=== PATIENT | male | born 1965 | race Caucasian/White ===

== ENCOUNTER 2019-10-12 06:16 | Emergency (ER) | payer BC ==
[2019-10-12 06:26] VITALS: BP 151/81; PULSE 65; TEMP 97.5
[2019-10-12] MEDS ORDERED: ORPHENADRINE 30 MG/ML 2 ML VIAL IM STA (06:42)
[2019-10-12] MEDS ORDERED: KETOROLAC 60 MG/2 ML VIAL IM STA (06:42)
--- NOTE | 2019-10-12 06:47 | ED ---
Back Pain HPI - General Chief Complaint: Back Pain/Injury Stated Complaint: shoulder pain Time Seen by Provider: 10/12/19 06:29 Source: patient, RN notes reviewed, old records reviewed - History of Present Illness Initial Comments: This Patient is a pleasant 54-year-old male, he presents emergency Department today with right shoulder pain. Pain is worse with range of motion. Patient reports that over the past weekend he was doing a lot heavy lifting. He reports that he woke up on Tuesday with pain in the right shoulder. He saw his primary care doctor and was placed on steroids for concern for pulmonary muscle. No x- rays were completed at that time. Patient states that he was having some improvement of his shoulder pain up until today when he started to make coffee. Patient reports that doing a simple range of motion is morning, severe pain and spasming in his right shoulder. He does have a history of carpal tunnel. He reports he has had a history of cardiac right rotator cuff repair by Dr. Garcia a few years ago. Patient states that he is right-handed. Patient denies any recent fever, chills, shortness of breath, chest pain, back pain, abdominal pain, nausea vomiting, numbness or tingling, dysuria or hematuria, constipation or diarrhea, headaches or visual changes, or any other current symptoms - Related Data Home Medications Medication Instructions Recorded Confirmed Mesalamine [Lialda] 3.6 gm PO DAILY 08/26/16 08/31/16 Previous Rx's Medication Instructions Recorded Cephalexin [Keflex] 500 mg PO Q8HR #15 cap 08/31/16 HYDROcodone/APAP 5-325MG [[place] 5] 1 - 2 each PO Q4-6H PRN #60 tab 08/31/16 Sennosides-Docusate Sodium 2 tab PO DAILY #30 tablet 08/31/16 [Senokot-S] Cyclobenzaprine [Flexeril] 10 mg PO TID #12 tab 10/12/19 Ibuprofen [Motrin] 600 mg PO Q6HR PRN #12 tab 10/12/19 Allergies Allergy/AdvReac Type Severity Reaction Status Date / Time No Known Allergies Allergy Verified 10/12/19 06:26 Review of Systems ROS Statement: Those systems with pertinent positive or pertinent negative responses have been documented in the HPI. ROS Other: All systems not noted in ROS Statement are negative. Past Medical History Past Medical History: Diabetes Mellitus, Hypertension Additional Past Medical History / Comment(s): ULCERATIVE COLITIS History of Any Multi-Drug Resistant Organisms: None Reported Past Surgical History: Orthopedic Surgery Additional Past Surgical History / Comment(s): 08/31/16 Acromioplasty excision distal clavicle right rotator cuff repair. Past Anesthesia/Blood Transfusion Reactions: No Reported Reaction Past Psychological History: No Psychological Hx Reported Smoking Status: Current every day smoker Past Alcohol Use History: Rare Past Drug Use History: None Reported - Past Family History Father Family Medical History: Diabetes Mellitus, Myocardial Infarction ([place]), Vascular Disorder Mother Family Medical History: Cancer Additional Family Medical History / Comment(s): melanoma General Exam - General Exam Comments Initial Comments: 54-year-old male. Patient is alert and oriented 3. No distress. General appearance: alert, in no apparent distress Head exam: Present: atraumatic, normocephalic, normal inspection Eye exam: Present: normal appearance, PERRL, EOMI. Absent: scleral icterus, conjunctival injection, periorbital swelling ENT exam: Present: normal exam, mucous membranes moist Neck exam: Present: normal inspection. Absent: tenderness, meningismus, lymphadenopathy Respiratory exam: Present: normal lung sounds bilaterally. Absent: respiratory distress, wheezes, rales, rhonchi, stridor Cardiovascular Exam: Present: regular rate, normal rhythm, normal heart sounds. Absent: systolic murmur, diastolic murmur, rubs, gallop, clicks GI/Abdominal exam: Present: soft, normal bowel sounds. Absent: distended, tenderness, guarding, rebound, rigid Extremities exam: Present: normal inspection, full ROM, normal capillary refill. Absent: tenderness, pedal edema, joint swelling, calf tenderness Right Shoulder Exam: Present: tenderness, swelling, other (Evidence of scar from previous R rotator cuff repair). Absent: normal inspection, full ROM ( is only able to abduct armed to 45 without severe pain. Tenderness over the trapezius muscle.), abrasion, laceration Upper Arm exam: Present: normal inspection, full ROM Elbow exam: Present: normal inspection, full ROM Forearm Wrist exam: Present: normal inspection, full ROM Hand Wrist exam: Present: normal inspection, full ROM Neuro motor exam: Present: wrist extension intact, thumb opposition intact, thumb IP flexion intact, thumb adduction intact, fingers 2-5 abduction intact Vascular: Present: normal capillary refill Back exam: Present: normal inspection Neurological exam: Present: alert, oriented X3, CN II-XII intact Psychiatric exam: Present: normal affect, normal mood Skin exam: Present: warm, dry, intact, normal color. Absent: rash Course Vital Signs 10/12/19 06:20 Temperature 97.5 F L Pulse Rate 65 Respiratory 19 Rate Blood Pressure 151/81 O2 Sat by Pulse 97 Oximetry Medical Decision Making - Medical Decision Making Patient's 54-year-old male, history of right rotator cuff injury and repair a few years ago by Dr. Garcia. He presents after doing heavy lifting at home this past weekend complaining of worsening pain. Saw his PCP and was placed on steroids. Today he reports that he had worsening pain after lifting diffuse items up to make coffee. Patient has limited range of motion of the right shoulder, concerned for re-rotator cuff injury. She only able to abduct to 45, and positive Apley scratch test. He is neurovascularly intact distally. X-ray of the shoulder revealed evidence of a loose body over the greater trochanter. Discussed this concern for rotator cuff tear. I did discuss the Patient could be predisposed to developing frozen shoulder syndrome. I discussed that he needs to practice some range of motion of his shoulder and had prompt follow-up with orthopedic. I discussed the Patient can be given a shoulder sling with the instructions to take his shoulder out frequently and do purposeful range of motion. Patient will be discharged at this time with a short course of pain medication and muscle relaxers and anti-inflammatory medicine. - Radiology Data Radiology results: report reviewed No acute fracture dislocation evident on the right shoulder. Mild to moderate narrowing of the glenohumeral joint. All defined widening at the acromial clavicular joint bruising prior to prior surgery with partial bony resection. 8 mm ossific fragment near the greater tuberosity suspicious for intra-articular loose body. The visualized ribs are intact and unremarkable. Disposition Clinical Impression: Rotator cuff dysfunction Disposition: ADMITTED IP TO THIS HOSP Condition: Stable Instructions (If sedation given, give patient instructions): Rotator Cuff Injury (ED) Additional Instructions: Patient advised to do purposeful range of motion of her shoulder even though being placed in a shoulder sling. He should do range of motion every 1-2 hours. Take anti-inflammatory medicine as prescribed. Muscle relaxers as prescribed. Return to the emergency department if any alarming signs or symptoms occur. Prescriptions: Cyclobenzaprine [Flexeril] 10 mg PO TID #12 tab Ibuprofen [Motrin] 600 mg PO Q6HR PRN #12 tab PRN Reason: Pain Is patient prescribed a controlled substance at d/c from ED?: No Referrals: Ajay Hope DO [Primary Care Provider] - 1-2 days Abram Allan MD [STAFF PHYSICIAN] - 1-2 days Time of Disposition: 07:13
--- NOTE | 2019-10-12 06:54 | XR ---
EXAMINATION TYPE: XR shoulder complete RT DATE OF EXAM: 10/12/2019 CLINICAL HISTORY: History of rotator cuff injury with pain. TECHNIQUE: Three views of the right shoulder are obtained. COMPARISON: None. FINDINGS: There is no acute fracture/dislocation evident in the right shoulder. [id number] delma rowing at the glenohumeral joint. Well-defined widening at acromioclavicular joint presumed product o f prior surgery or partial bony resection. 8 mm ossific fragment near greater tuberosity suspicious f or intra-articular loose body. The visualized ribs are intact and unremarkable. IMPRESSION: As above.
[2019-10-12] MEDS ORDERED: ACET/COD 300 MG/30 MG STARTER PACK 6 TAB BTL PO STA (07:13)
[2019-10-12 07:31] VITALS: RESP 20
== END 2019-10-12 07:31 | disposition other institution (70) ==
LOC: EC 06:16
DX: M62.89 Other specified disorders of muscle (principal); K51.90 Ulcerative colitis, unspecified, without complications; F17.200 Nicotine dependence, unspecified, uncomplicated; Z79.899 Other long term (current) drug therapy; Z87.828 Personal history of other (healed) physical injury and trauma; Z98.890 Other specified postprocedural states; X50.0XXA Overexertion from strenuous movement or load, initial encounter
CPT/HCPCS: 73030; 99285; 96372 ×2; J2360; J1885

== ENCOUNTER → 2021-06-05 | Outpatient (CLI) | payer BC ==
--- NOTE | 2021-06-06 04:41 | MR ---
EXAMINATION TYPE: MR brain wo con DATE OF EXAM: 06/05/2021 COMPARISON: None HISTORY: Headache for now 7 weeks, history of left and right side numbness. Multiplanar multiecho imaging of the brain without contrast. Ventricles have fairly normal size. There is no mass effect nor midline shift. There is no sign of in tracranial hemorrhage. Diffusion images show no evidence of an acute infarct. Corpus callosum appears normal. Sella turcica appears normal. There is no evidence of orbital mass. T here are a few small foci of increased signal in the white matter right parietal lobe measuring up to 5 mm. Total number is approximately 5. Brainstem appears intact. Cerebellum is intact. There is mucosal thickening in the maxillary and ethmoid sinuses. IMPRESSION: There are a few white matter high signal foci in the right parietal lobe of uncertain significance. O therwise negative MR scan of the brain. No evidence of cortical infarct. I do not suspect demyelinati ng disease. Sinusitis.
== END | disposition home or self-care (01) ==
LOC: RADMRIMAIN 18:15
PROVIDERS: ATTEND Physician Assistant
DX: R93.0 Abnormal findings on diagnostic imaging of skull and head, not elsewhere classified (principal)
CPT/HCPCS: 70551

== ENCOUNTER → 2021-07-13 | Outpatient (CLI) | payer BC ==
--- NOTE | 2021-07-13 13:04 | US ---
EXAMINATION TYPE: US scrotum with doppler. Grayscale and color Doppler Duplex imaging performed of kika duval scrotum. DATE OF EXAM: 07/13/2021 COMPARISON: NONE CLINICAL HISTORY: R testicular pain. EXAM MEASUREMENTS: TESTICLES: Right Testicle: 4.7 x 2.2 x 3.4 cm Left Testicle: 5.5 x 2.2 x 3.1 cm EPIDIDYMIS HEAD: Right Epididymis: 1.3 x 0.8 cm Left Epididymis: 1.1 x 0.7 cm Doppler performed to assess for testicular vascularity; good bilateral color flow and waveforms are s een. There is no evidence of testicular torsion. Presence of hydroceles: small amount of fluid around right testicle. Presence of varicoceles: noticed bilaterally, increased flow with valsalva. IMPRESSION: 1. Bilateral varicoceles. 2. Small amount of right-sided hydrocele.
--- NOTE | 2021-07-13 13:05 | US ---
EXAMINATION TYPE: US pelvic limited DATE OF EXAM: 07/13/2021 COMPARISON: NONE CLINICAL HISTORY: RLQ pain. RLQ pain in groin down to testicle. The right groin was scanned over patient's area of pain. There is a 1.4 x 0.9 cm lymph node noted. Va lsalva was utilized, no obvious hernia noted. IMPRESSION: No hernia visualized at this time.
== END | disposition home or self-care (01) ==
LOC: RADUSWWP 12:08
PROVIDERS: ATTEND Family Medicine
DX: N43.3 Hydrocele, unspecified (principal); I86.1 Scrotal varices
CPT/HCPCS: 76857; 76870; 93975

== ENCOUNTER → 2021-09-30 | Outpatient (CLI) | payer BC ==
[2021-09-30 15:45] LABS: African American GFR (CKD) >90 (>60 ml/min/1.73 sqM); Blood Urea Nitrogen 20 mg/dL (9-20); Non-African American GFR(CKD) 84 (>60 ml/min/1.73 sqM)
--- NOTE | 2021-10-01 10:00 | CT ---
EXAMINATION TYPE: CT abdomen pelvis w con DATE OF EXAM: 09/30/2021 COMPARISON: Ultrasound 07/13/2021 HISTORY: LLQ pain, hernia CT DLP: 1537.7 mGycm Automated exposure control for dose reduction was used. CONTRAST: CT scan of the abdomen pelvis is performed with IV Contrast, patient injected with 100 mL of Isovue 3 00. FINDINGS- LUNG BASES- No significant abnormality is appreciated. LIVER/GB- No gross abnormality is appreciated. PANCREAS- No gross abnormality is seen. SPLEEN- No gross abnormality is seen. ADRENALS- No gross abnormality is seen. KIDNEYS/BLADDER- no hydronephrosis or nephrolithiasis. Simple 4.3 cm left renal cyst. Additional tiny hypodensity measuring less than 5 mm right kidney too small to characterize. BOWEL- no bowel dilatation. Normal appendix. LYMPH NODES- No greater than 1cm abdominal or pelvic lymph nodes areappreciated. OSSEOUS STRUCTURES-hypertrophic changes spine. Suspect a spondylolysis of L5. Minimal anterolisthesis . OTHER- bilateral fat-containing inguinal hernias. IMPRESSION- 1. Bilateral fat-containing inguinal hernias. 2. Bilateral spondylolysis L5 with grade 1 anterolisthesis. 3. Simple appearing right renal cyst
== END | disposition home or self-care (01) ==
LOC: RADCTMAIN 14:12
PROVIDERS: ATTEND Family Medicine
DX: K40.90 Unilateral inguinal hernia, without obstruction or gangrene, not specified as recurrent (principal); N28.1 Cyst of kidney, acquired; M43.06 Spondylolysis, lumbar region
CPT/HCPCS: 82565; 84520; 74177; 36415; Q9967

== ENCOUNTER 2021-10-09 06:29 | Day surgery (SDC) | payer BC ==
[2021-10-06 10:55] VITALS: BMI 30.1
[~2021-10-09 06:29] MED LIST: LACTATED RINGERS 1,000 ML IV SCH
[2021-10-09 07:03] VITALS: TEMP 97.5
[2021-10-09 07:11] LABS: Glucose,Whole Blood 296 mg/dL (75-99)
[2021-10-09] MEDS ORDERED: INSULIN ASPART (NovoLOG) 100 UNIT/ML VIAL SQ ONE (07:14)
[2021-10-09] MEDS ORDERED: LIDOCAINE 1% INJ 10MG/ML (20 ML MDV) ONE (07:29)
[2021-10-09] MEDS ORDERED: PROPOFOL 10 MG/ML 20 ML VIAL IV ONE (07:29)
--- NOTE | 2021-10-09 07:50 | P.PCN ---
Date of Procedure: 10/09/21 Procedure(s) Performed: BRIEF HISTORY: Patient is a 56-year-old pleasant white male scheduled for an elective colonoscopy as a part of surveillance of long-standing history of ulcerative colitis diagnosed in 2013. He is in clinical remission. He is maintained on mesalamine 4.8 g daily. PROCEDURE PERFORMED: Colonoscopy with biopsy. PREOPERATIVE DIAGNOSIS: Long-standing history of ulcerative colitis. IV sedation per Anesthesia. PROCEDURE: After informed consent was obtained, the patient, was brought into the endoscopy unit. IV sedation was administered by Anesthesia under continuous monitoring. Digital rectal examination was normal. Initially the Olympus CF-160 flexible video colonoscope was then inserted in the rectum, gradually advanced into the cecum without any difficulty. Careful examination was performed as the scope was gradually being withdrawn. Ileocecal valve and the appendiceal orifice were visualized and appeared normal. Prep was excellent. Mucosa of the cecum, ascending colon, transverse colon, descending colon, sigmoid colon, and rectum appeared normal. Random biopsies were done at every 10 cm intervals from rectum to cecum to rule out dysplasia Retroflexion was performed in the rectum and no lesions were seen. The patient tolerated the procedure well. IMPRESSION: Normal-appearing colon from rectum to cecum with no evidence of colitis or colorectal neoplasia . RECOMMENDATIONS: Findings of this examination were discussed with the patient s his family. He was advised to follow with the biopsy results. If the biopsy reveals no evidence of dysplasia, he can have a repeat colonoscopy in 2 years.
[2021-10-09 07:53] VITALS: RESP 18
[2021-10-09 08:14] VITALS: BP 105/67; PULSE 59
== END 2021-10-09 08:33 | disposition home or self-care (01) ==
LOC: ORWHC2ENDO 06:29
PROVIDERS: ATTEND Internal Medicine Gastroenterology
DX: K51.90 Ulcerative colitis, unspecified, without complications (principal); I10 Essential (primary) hypertension; F17.200 Nicotine dependence, unspecified, uncomplicated; Z98.890 Other specified postprocedural states; Z79.82 Long term (current) use of aspirin; Z79.899 Other long term (current) drug therapy
CPT/HCPCS: 88305; 45380; J2001; J2704

== ENCOUNTER → 2021-10-16 | Outpatient (CLI) | payer BC ==
[2021-10-16 16:18] LABS: Basophils # (A) 0.04 X 10*3/uL (0.00-0.10); Basophils % (A) 0.8 %; Eosinophils % (A) 5.9 %; Lymphocytes # (A) 1.44 X 10*3/uL (0.90-5.00); Lymphocytes % (A) 28.2 %; MCH 29.4 pg (27.0-32.0); MCHC 33.3 g/dL (32.0-37.0); MCV 88.2 fL (80.0-97.0); Monocytes # (A) 0.34 X 10*3/uL (0.20-1.00); Monocytes % (A) 6.7 %; Neutrophils # (A) 2.95 X 10*3/uL (1.80-7.70); Neutrophils % (A) 57.6 %; Platelet Count 175 X 10*3/uL (140-440); RDW 12.6 % (11.5-14.5); WBC 5.11 X 10*3/uL (4.50-10.00)
== END | disposition home or self-care (01) ==
LOC: LABPAT 09:11
PROVIDERS: ATTEND Surgery
DX: Z01.812 Encounter for preprocedural laboratory examination (principal); K40.20 Bilateral inguinal hernia, without obstruction or gangrene, not specified as recurrent
CPT/HCPCS: 36415; 85025

== ENCOUNTER 2021-10-20 05:48 | Day surgery (SDC) | payer BC ==
[2021-10-15 13:34] VITALS: BMI 30.1
[~2021-10-20 05:48] MED LIST changes: +ACETAMINOPHEN TAB 500 MG TAB PO PRN; +HEPARIN SODIUM,PORCINE/PF 5,000 UNIT/0.5 ML SYRINGE SQ PRN; -LACTATED RINGERS 1,000 ML IV SCH
[2021-10-20] MEDS ORDERED: LACTATED RINGERS 1,000 ML IV SCH (05:50)
[2021-10-20] MEDS ORDERED: DEXAMETHASONE SOD PHOSPHATE 4 MG/ML 1 ML VIAL IV ONE (05:50)
[2021-10-20] MEDS ORDERED: SCOPOLAMINE 1.5MG/72HR PATCH TRANSDERM ONE (05:50)
[2021-10-20] MEDS ORDERED: ONDANSETRON 4 MG/2 ML VIAL IVP ONE (05:50)
[2021-10-20] MEDS ORDERED: LIDOCAINE 1% (10MG/ML) FOR IV START INTRADERMA PRN (05:50)
[2021-10-20 06:35] LABS: Glucose,Whole Blood 147 mg/dL (75-99)
[2021-10-20] MEDS ORDERED: HYDROmorphone 0.5 MG/0.5 ML SYRINGE IVP PRN (07:00)
[2021-10-20] MEDS ORDERED: fentaNYL (PF) 50 MCG/ML 2 ML AMP IVP ONE (07:22)
[2021-10-20] MEDS ORDERED: MIDAZOLAM 2 MG/2 ML VIAL IVP ONE (07:22)
[2021-10-20] MEDS ORDERED: ROPIVACAINE 5 MG/ML 30 ML VIAL ONE (07:52)
[2021-10-20] MEDS ORDERED: SODIUM CHLORIDE 0.9% (PF) 10 ML VIAL ONE (07:52)
[2021-10-20] MEDS ORDERED: ROCURONIUM 10 MG/ML (5 ML VIAL) IV ONE (07:52)
[2021-10-20] MEDS ORDERED: fentaNYL (PF) 50 MCG/ML 2 ML AMP ONE (07:52)
[2021-10-20] MEDS ORDERED: NEOSTIGMINE 1 MG/ML 10 ML VIAL ONE (07:52)
[2021-10-20] MEDS ORDERED: GLYCOPYRROLATE 0.2 MG/ML 2 ML VIAL ONE (07:52)
[2021-10-20] MEDS ORDERED: PROPOFOL 10 MG/ML 20 ML VIAL IV ONE (07:52)
[2021-10-20] MEDS ORDERED: SUCCINYLCHOLINE CHLORIDE 100 MG/5 ML SYR IV ONE (07:52)
[2021-10-20] MEDS ORDERED: MIDAZOLAM 2 MG/2 ML VIAL ONE (07:52)
[2021-10-20] MEDS ORDERED: KETAMINE 10 MG/ML 20 ML VIAL ONE (07:52)
--- NOTE | 2021-10-20 07:52 | P.GSHP ---
History of Present Illness H&P Date: 10/20/21 Chief Complaint: Bilateral inguinal hernia This is a 56-year-old male with complaints of right groin pain. Patient was seen Karly. Bilateral hernias. He presents today for laparoscopic robotic- assisted repair. Past Medical History Past Medical History: Diabetes Mellitus, Hypertension Additional Past Medical History / Comment(s): ULCERATIVE COLITIS, inguinal hernia. History of Any Multi-Drug Resistant Organisms: None Reported Past Surgical History: Orthopedic Surgery Additional Past Surgical History / Comment(s): Acromioplasty excision distal clavicle right rotator cuff repair, colonoscopies, procedure at [facility] for headaches. Past Anesthesia/Blood Transfusion Reactions: No Reported Reaction Past Psychological History: No Psychological Hx Reported Smoking Status: Former smoker Past Alcohol Use History: Rare Additional Past Alcohol Use History / Comment(s): QUIT SMOKING 2011- STILLS CHEWS TOBACCO. Past Drug Use History: None Reported - Past Family History Father Family Medical History: Diabetes Mellitus, Myocardial Infarction ([place]), Vascular Disorder Mother Family Medical History: Cancer Additional Family Medical History / Comment(s): Melanoma. Medications and Allergies Home Medications Medication Instructions Recorded Confirmed Type Mesalamine [Lialda] 3.6 gm PO DAILY 08/26/16 10/20/21 History Aspirin 81 mg PO DAILY 10/06/21 10/20/21 History Atorvastatin [Lipitor] 10 mg PO DAILY 10/06/21 10/20/21 History Cannabidiol (Cbd) [Epidiolex] 1 dose TOPICAL DAILY PRN 10/06/21 10/20/21 History Cholecalciferol [Vitamin D3 (25 25 mcg PO DAILY 10/06/21 10/20/21 History Mcg = 1000 Iu)] Citalopram Hydrobromide [CeleXA] 20 mg PO HS 10/06/21 10/20/21 History Krill/[place]-3/Dha/Epa/Lipids 1 each PO DAILY 10/06/21 10/20/21 History [Krill Oil 350 mg Softgel] Loratadine [Claritin] 10 mg PO DAILY 10/06/21 10/20/21 History Losartan Potassium 100 mg PO QAM 10/06/21 10/20/21 History Topiramate [Topamax] 100 mg PO HS 10/06/21 10/20/21 History Zinc 50 mg PO DAILY 10/06/21 10/20/21 History atenoloL [Tenormin] 25 mg PO QAM 10/06/21 10/20/21 History Insulin Aspart (Niacinamide) 0 units SQ DIRECTED PRN 10/15/21 10/20/21 History [Fiasp 100 Unit/ml Vial] Insulin Degludec [Tresiba] 15 units SQ HS 10/15/21 10/20/21 History Semaglutide [Ozempic] 0.25 mg SQ SEGURA 10/15/21 10/20/21 History metFORMIN HCL [Glucophage] 1,000 mg PO BID 10/15/21 10/20/21 History Allergies Allergy/AdvReac Type Severity Reaction Status Date / Time No Known Allergies Allergy Verified 10/20/21 06:36 Surgical - Exam Vital Signs Temp Pulse Resp BP Pulse Ox 98.0 F 59 L 16 145/84 97 10/20/21 06:19 10/20/21 06:19 10/20/21 06:19 10/20/21 06:19 10/20/21 06:19 - General well developed, well nourished, no distress - Eyes PERRL - ENT normal pinna - Neck no masses - Respiratory normal expansion - Cardiovascular Rhythm: regular - Abdomen Abdomen: soft, non tender Hernia: inguinal (Bilateral inguinal hernia) Results - Labs Abnormal Lab Results - Last 24 Hours (Table) 10/20/21 Range/Units 06:30 POC Glucose (mg/dL) 147 H (75-99) mg/dL Assessment and Plan Assessment: Bilateral inguinal hernia. We'll perform laparoscopic robotic-assisted repair.
[2021-10-20] MEDS ORDERED: BUPIVACAIN-EPI 0.25%-1:200,000 30 ML VIAL SQ ONE ×2 (07:58→08:15)
[2021-10-20] MEDS ORDERED: LACTATED RINGERS 1,000 ML IV ONE ×2 (08:22→10:20)
--- NOTE | 2021-10-20 09:00 | P.OP ---
Date of Procedure: 10/20/21 Preoperative Diagnosis: Bilateral hernia Postoperative Diagnosis: Bilateral inguinal hernia Procedure(s) Performed: Laparoscopic robotic system repair of bilateral inguinal hernia Excision of bilateral cord lipoma Transversus abdominis plane block Anesthesia: ANAND Surgeon: Hayder Reina Estimated Blood Loss (ml): 5 Pathology: other (Bilateral cord lipoma) Condition: stable Disposition: PACU Operative Findings: The patient's placed on the operating table in the supine position. The patient received general anesthesia. The patient's abdomen was prepped and draped in usual sterile fashion. The skin was anesthetized 1% local Xylocaine at the incision sites. Using an 11 blade a skin incision was made at the umbilicus. The fascia was grasped with a Negin and then the peritoneal cavity was entered with the Veress needle. Position of the Veress needle was confirmed with a positive drop test. After adequate insufflation a 5 mm trocar was placed into the peritoneal cavity. The Laparoscope was placed the peritoneal cavity. And a robotic 8 mm trocar was placed in the right lateral position and then another 8 mm robotic trochars placed in the left lateral position. The original 5 mm trocar was exchanged for a 12 mm trocar. A four-quadrant transversus abdominis plane block was performed using 1% local Xylocaine. The patient was placed in reverse Trendelenburg and then the patient was docked to the robot. Next the peritoneum over top of the right inguinal hernia was incised and then using blunt and sharp dissection and electrocautery the hernia sac was dissected free from the floor of the inguinal canal. The cord lipoma was dissected free sent to pathology The hernia sac was completely reduced into the peritoneal cavity. And then using the [employer] [place] mesh the hernia was repaired. The peritoneum was then sutured with 20V lock suture. Next the peritoneum over top of the left inguinal hernia was incised and then using blunt and sharp dissection and electrocautery the hernia sac was dissected free from the floor of the inguinal canal. The cord lipoma was dissected free sent to pathology. The hernia sac was completely reduced into the peritoneal cavity. And then using the [employer] [place] mesh the hernia was repaired. The peritoneum was then sutured with 20V lock suture. The patient was then undocked the robot. The needle was withdrawn from the peritoneal cavity. The umbilical trocar site was closed with 0 Ethibond suture. The skin was closed interrupted 3-0 Monocryl suture. Dermabond dressing was applied. Patient was sent to recovery in stable condition.
[2021-10-20 09:05] VITALS: TEMP 97.2
[2021-10-20 10:56] LABS: Glucose,Whole Blood 202 mg/dL (75-99)
[2021-10-20 11:32] VITALS: BP 147/81; PULSE 73; RESP 14
--- NOTE | 2021-10-20 13:20 | P.ANPRN ---
Procedure Note - Anesthesia - Nerve Block Performed Bilateral Erector Spinae Time Out Performed: Yes (07:21) Date of Procedure: 10/20/21 Procedure Start Time: Procedure Stop Time: :30 Location of Patient: PreOp Indication: Acute Post-Operative Pain, Requested by Surgeon (DR Reina) Sedation Type: Sedate with meaningful contact maintained Preparation: Sterile Prep Position: Prone Catheter: None Needle Types: Pajunk Needle Gauge: 21 Ultrasound used to visualize needle placement: Yes Ultrasound used to observe medication spread: Yes Injectate: 0.5% Ropivacaine (see comment for volume) (15cc + 10 cc PF Normal saline each side) Blood Aspirated: No Pain Paresthesia on Injection Noted: No Resistance on Injection: Normal Image Stored and Saved: Yes Events: Uneventful and Well Tolerated
== END 2021-10-20 11:58 | disposition home or self-care (01) ==
LOC: OR 05:48
PROVIDERS: ATTEND Surgery
DX: K40.20 Bilateral inguinal hernia, without obstruction or gangrene, not specified as recurrent (principal)
CPT/HCPCS: 49650; S2900; 64999; 86850; 86900; 86901; 88304

== ENCOUNTER 2021-11-24 13:17 | Emergency (ER) | payer BC ==
[2021-11-24] MEDS ORDERED: SODIUM CHLORIDE 0.9% 500 ML 500 ML IV STA (13:30)
[2021-11-24] MEDS ORDERED: METOCLOPRAMIDE 5 MG/ML 2 ML VIAL IVP STA (13:33)
[2021-11-24] MEDS ORDERED: MECLIZINE 12.5 MG TAB PO STA (13:33)
--- NOTE | 2021-11-24 13:33 | ED ---
General Adult HPI - General Source: patient, RN notes reviewed Limitations: no limitations <Beck Ordoñez - Last Filed: 11/24/21 13:59> <Armen Waggoner - Last Filed: 11/24/21 17:52> - General Stated complaint: syncope Time Seen by Provider: 11/24/21 13:20 - History of Present Illness Initial comments: Patient is a pleasant 56-year-old male presenting to the emergency department following a syncopal episode. Patient was at the doctor's office and had injections in the frontal region secondary to chronic headaches. Patient felt lightheaded following this and almost passed out. Patient went back inside and did have a syncopal episode. Patient was feeling dizzy at the time and spinning. Patient still feels this way. No vomiting. No loss of vision. No c onfusion. No history of similar symptoms previously. (Beck Ordoñez) - Related Data Home Medications Medication Instructions Recorded Confirmed Mesalamine [Lialda] 1.2 gm PO TID 08/26/16 11/24/21 Atorvastatin [Lipitor] 10 mg PO DAILY 10/06/21 11/24/21 Citalopram Hydrobromide [CeleXA] 20 mg PO HS 10/06/21 11/24/21 Losartan Potassium 100 mg PO DAILY 10/06/21 11/24/21 atenoloL [Tenormin] 25 mg PO DAILY 10/06/21 11/24/21 Semaglutide [Ozempic] 0.25 mg SQ SEGURA 10/15/21 11/24/21 SUMAtriptan succinate [Imitrex] 50 mg PO DAILY PRN 11/24/21 11/24/21 Topiramate [Topamax] 50 mg PO BID 11/24/21 11/24/21 metFORMIN HCL 1,000 mg PO DAILY 11/24/21 11/24/21 metFORMIN HCL 500 mg PO HS 11/24/21 11/24/21 Previous Rx's Medication Instructions Recorded Meclizine [Antivert] 25 mg PO TID PRN #15 tab 11/24/21 Allergies Allergy/AdvReac Type Severity Reaction Status Date / Time No Known Allergies Allergy Verified 11/24/21 14:33 Review of Systems ROS Other: All systems not noted in ROS Statement are negative. Constitutional: Denies: fever Eyes: Denies: eye pain ENT: Denies: ear pain Respiratory: Denies: cough Cardiovascular: Denies: chest pain Endocrine: Denies: fatigue Gastrointestinal: Denies: abdominal pain Genitourinary: Denies: dysuria Musculoskeletal: Denies: back pain Skin: Denies: rash Neurological: Reports: as per HPI, vertigo. Denies: headache, weakness <Beck Ordoñez - Last Filed: 11/24/21 13:59> ROS Other: All systems not noted in ROS Statement are negative. <Armen Waggoner - Last Filed: 11/24/21 17:52> ROS Statement: Those systems with pertinent positive or pertinent negative responses have been documented in the HPI. Past Medical History Past Medical History: Diabetes Mellitus, Hypertension Additional Past Medical History / Comment(s): ULCERATIVE COLITIS, inguinal hernia. History of Any Multi-Drug Resistant Organisms: None Reported Past Surgical History: Orthopedic Surgery Additional Past Surgical History / Comment(s): Acromioplasty excision distal clavicle right rotator cuff repair, colonoscopies, procedure at [facility] for headaches. Past Anesthesia/Blood Transfusion Reactions: No Reported Reaction Past Psychological History: No Psychological Hx Reported Smoking Status: Former smoker Past Alcohol Use History: Rare Additional Past Alcohol Use History / Comment(s): QUIT SMOKING 2011- STILLS CHEWS TOBACCO. Past Drug Use History: None Reported - Past Family History Father Family Medical History: Diabetes Mellitus, Myocardial Infarction ([facility]), Vascular Disorder Mother Family Medical History: Cancer Additional Family Medical History / Comment(s): Melanoma. <Beck Ordoñez - Last Filed: 11/24/21 13:59> General Exam Limitations: no limitations General appearance: alert, in no apparent distress Head exam: Present: normocephalic Eye exam: Present: normal appearance, PERRL, EOMI. Absent: nystagmus ENT exam: Present: normal oropharynx Neck exam: Present: normal inspection Respiratory exam: Present: normal lung sounds bilaterally Cardiovascular Exam: Present: regular rate, normal rhythm GI/Abdominal exam: Present: soft. Absent: tenderness Extremities exam: Present: normal inspection Neurological exam: Present: alert, oriented X3, CN II-XII intact. Absent: motor sensory deficit Expanded Neurological exam: Present: protecting the airway Speech: Present: fluid speech Cranial nerves: EOM's Intact: Normal, Facial Sensation: Normal Motor strength exam: RUE: 5, LUE: 5, RLE: 5, LLE: 5 Eye Response: (4) open spontaneously Motor Response: (6) obeys commands Verbal Response: (5) oriented Psychiatric exam: Present: normal affect, normal mood Skin exam: Present: normal color <Beck Ordoñez - Last Filed: 11/24/21 13:59> Course Vital Signs 11/24/21 13:35 Temperature 98 F Pulse Rate 72 Respiratory 18 Rate Blood Pressure 143/81 O2 Sat by Pulse 96 Oximetry EKG Findings - EKG Comments: EKG Findings:: Sinus rhythm with a rate of 66. TN 194. QRS 100. QT 373. QTC 46. Normal axis. Normal QRS. No acute ST change. <Beck Ordoñez - Last Filed: 11/24/21 13:59> Medical Decision Making - Lab Data Result diagrams: 11/24/21 14:55 11/24/21 14:55 <Armen Waggoner - Last Filed: 11/24/21 17:52> - Medical Decision Making Care signed out to me by previous shift physician, Dr. Ordoñez. Briefly, patient is a 56-year-old male presents emergency department for positional vertigo. Patient has history of headache recently underwent frontal injections at [facility]. Patient states his headache symptoms are significantly improved after the injections. Today he awoke with vertiginous symptoms. Seen and evaluated at the bedside at 4:00 PM. States that his symptoms are only noticeable with head movement. States he doesn't have any symptoms at rest. Patient denies any other neurologic deficits. He is well- appearing and physical examination bedside is negative. Dr. Ordoñez had ordered labs and imaging. Plan at sign was a fall with pending labs imaging to determine final disposition. Clinical presentation consistent with benign positional vertigo. Laboratory evaluation is unremarkable. Urinalysis is negative. Patient was ordered for Antivert and Reglan. Computed tomography scan the brain is unremarkable. Chest x-ray is nonacute. Chest x-ray is nonacute. CT angiography of the head and neck shows no significant findings. Patient reevaluated at the bedside at 5:50 PM found to be stable medical condition. States that his symptoms are significantly improved. Patient an Chiara with no complications. His workup is essentially negative and his clinical presentation is consistent with peripheral vertigo. Patient's agreeable discharge is told to follow-up with his neurologist. (Armen Waggoner) - Lab Data Lab Results 11/24/21 11/24/21 11/24/21 Range/Units 14:55 14:55 14:55 WBC 10.1 (3.8-10.6) k/uL RBC 4.95 (4.30-5.90) m/uL Hgb 15.4 (13.0-17.5) gm/dL Hct 45.6 (39.0-53.0) % MCV 92.1 (80.0-100.0) fL MCH 31.1 (25.0-35.0) pg MCHC 33.8 (31.0-37.0) g/dL RDW 12.9 (11.5-15.5) % Plt Count 162 (150-450) k/uL MPV 8.3 Neutrophils % 85 % Lymphocytes % 8 % Monocytes % 5 % Eosinophils % 1 % Basophils % 0 % Neutrophils # 8.6 H (1.3-7.7) k/uL Lymphocytes # 0.8 L (1.0-4.8) k/uL Monocytes # 0.5 (0-1.0) k/uL Eosinophils # 0.1 (0-0.7) k/uL Basophils # 0.0 (0-0.2) k/uL PT 10.9 (9.0-12.0) sec INR 1.0 (<1.2) APTT 20.1 L (22.0-30.0) sec Sodium 138 (137-145) mmol/L Potassium 4.5 (3.5-5.1) mmol/L Chloride 105 (98-107) mmol/L Carbon Dioxide 20 L (22-30) mmol/L Anion Gap 13 mmol/L BUN 20 (9-20) mg/dL Creatinine 0.81 (0.66-1.25) mg/dL Est GFR (CKD-EPI)AfAm >90 (>60 ml/min/1.73 sqM) Est GFR (CKD-EPI)NonAf >90 (>60 ml/min/1.73 sqM) Glucose 126 H (74-99) mg/dL Calcium 9.9 (8.4-10.2) mg/dL Total Bilirubin 0.5 (0.2-1.3) mg/dL AST 24 (17-59) U/L ALT 31 (4-49) U/L Alkaline Phosphatase 48 (38-126) U/L Troponin I (0.000-0.034) ng/mL Total Protein 7.6 (6.3-8.2) g/dL Albumin 4.6 (3.5-5.0) g/dL Urine Color Urine Appearance (Clear) Urine pH (5.0-8.0) Ur Specific [place] (1.001-1.035) Urine Protein (Negative) Urine Glucose (UA) (Negative) Urine Ketones (Negative) Urine Blood (Negative) Urine Nitrite (Negative) Urine Bilirubin (Negative) Urine Urobilinogen (<2.0) mg/dL Ur Leukocyte Esterase (Negative) 11/24/21 11/24/21 Range/Units 14:55 15:05 WBC (3.8-10.6) k/uL RBC (4.30-5.90) m/uL Hgb (13.0-17.5) gm/dL Hct (39.0-53.0) % MCV (80.0-100.0) fL MCH (25.0-35.0) pg MCHC (31.0-37.0) g/dL RDW (11.5-15.5) % Plt Count (150-450) k/uL MPV Neutrophils % % Lymphocytes % % Monocytes % % Eosinophils % % Basophils % % Neutrophils # (1.3-7.7) k/uL Lymphocytes # (1.0-4.8) k/uL Monocytes # (0-1.0) k/uL Eosinophils # (0-0.7) k/uL Basophils # (0-0.2) k/uL PT (9.0-12.0) sec INR (<1.2) APTT (22.0-30.0) sec Sodium (137-145) mmol/L Potassium (3.5-5.1) mmol/L Chloride (98-107) mmol/L Carbon Dioxide (22-30) mmol/L Anion Gap mmol/L BUN (9-20) mg/dL Creatinine (0.66-1.25) mg/dL Est GFR (CKD-EPI)AfAm (>60 ml/min/1.73 sqM) Est GFR (CKD-EPI)NonAf (>60 ml/min/1.73 sqM) Glucose (74-99) mg/dL Calcium (8.4-10.2) mg/dL Total Bilirubin (0.2-1.3) mg/dL AST (17-59) U/L ALT (4-49) U/L Alkaline Phosphatase (38-126) U/L Troponin I <0.012 (0.000-0.034) ng/mL Total Protein (6.3-8.2) g/dL Albumin (3.5-5.0) g/dL Urine Color Yellow Urine Appearance Clear (Clear) Urine pH 6.0 (5.0-8.0) Ur Specific [place] 1.023 (1.001-1.035) Urine Protein Trace H (Negative) Urine Glucose (UA) Negative (Negative) Urine Ketones Negative (Negative) Urine Blood Negative (Negative) Urine Nitrite Negative (Negative) Urine Bilirubin Negative (Negative) Urine Urobilinogen <2.0 (<2.0) mg/dL Ur Leukocyte Esterase Negative (Negative) Disposition <Beck Ordoñez - Last Filed: 11/24/21 13:59> Is patient prescribed a controlled substance at d/c from ED?: No <Armen Waggoner - Last Filed: 11/24/21 17:52> Clinical Impression: Vertigo Disposition: HOME SELF-CARE Condition: Good Instructions (If sedation given, give patient instructions): Vertigo (ED) Prescriptions: Meclizine [Antivert] 25 mg PO TID PRN #15 tab PRN Reason: dizziness Referrals: Ajay Hope DO [Primary Care Provider] - 1-2 days
[2021-11-24 13:37] VITALS: BP 143/81; PULSE 72; RESP 18; TEMP 98
[2021-11-24 15:15] LABS: Appearance,Urine Clear (Clear); Bilirubin,Urine Negative (Negative); Blood,Urine Negative (Negative); Color,Urine Yellow; Glucose,Urine (UA) Negative (Negative); Ketones,Urine Negative (Negative); Leukocyte Esterase,Urine Negative (Negative); Nitrite,Urine Negative (Negative); Protein,Urine Trace (Negative); Specific Gravity,Urine 1.023 (1.001-1.035); Urobilinogen,Urine <2.0 mg/dL (<2.0)
[2021-11-24 15:29] LABS: ALT 31 U/L (4-49); AST 24 U/L (17-59); African American GFR (CKD) >90 (>60 ml/min/1.73 sqM); Albumin 4.6 g/dL (3.5-5.0); Alkaline Phosphatase 48 U/L (38-126); Anion Gap 13 mmol/L; Blood Urea Nitrogen 20 mg/dL (9-20); Calcium 9.9 mg/dL (8.4-10.2); Carbon Dioxide 20 mmol/L (22-30); Chloride 105 mmol/L (98-107); Glucose 126 mg/dL (74-99); Non-African American GFR(CKD) >90 (>60 ml/min/1.73 sqM); Sodium 138 mmol/L (137-145); Total Bilirubin 0.5 mg/dL (0.2-1.3); Total Protein 7.6 g/dL (6.3-8.2)
[2021-11-24 15:32] LABS: Basophils % (A) 0 %; Eosinophils # (A) 0.1 k/uL (0-0.7); Eosinophils % (A) 1 %; HCT 45.6 % (39.0-53.0); HGB 15.4 gm/dL (13.0-17.5); Lymphocytes # (A) 0.8 k/uL (1.0-4.8); Lymphocytes % (A) 8 %; MCH 31.1 pg (25.0-35.0); MCHC 33.8 g/dL (31.0-37.0); MCV 92.1 fL (80.0-100.0); Mean Platelet Volume 8.3; Monocytes # (A) 0.5 k/uL (0-1.0); Monocytes % (A) 5 %; Neutrophils # (A) 8.6 k/uL (1.3-7.7); Neutrophils % (A) 85 %; Platelet Count 162 k/uL (150-450); RBC 4.95 m/uL (4.30-5.90); RDW 12.9 % (11.5-15.5); WBC 10.1 k/uL (3.8-10.6)
[2021-11-24 15:33] LABS: Potassium 4.5 mmol/L (3.5-5.1)
[2021-11-24 15:40] LABS: Prothrombin Time 10.9 sec (9.0-12.0)
--- NOTE | 2021-11-24 16:05 | XR ---
EXAMINATION TYPE: XR chest 2V DATE OF EXAM: 11/24/2021 COMPARISON: None HISTORY: 56-year-old male syncope TECHNIQUE: AP and lateral views FINDINGS: Heart normal size. Aorta and pulmonary vasculature within normal limits. Mild interstitial prominence is a chronic appearance. Hazy densities relating to overlying soft tissue and body habitus. No mann consolidation or pleural effusion is seen. IMPRESSION: Chronic appearing changes. Hazy densities related to overlying soft tissue and body habitus. No defin ite acute process.
--- NOTE | 2021-11-24 16:08 | CT ---
EXAMINATION TYPE: CT brain wo con DATE OF EXAM: 11/24/2021 COMPARISON: None available HISTORY: Syncope and headache. CT DLP: 1132.8 mGycm Automated exposure control for dose reduction was used. TECHNIQUE: CT scan of the brain is performed without IV contrast administration. FINDINGS: Scattered arterial atherosclerotic calcifications. No acute intracranial hemorrhage. No gross acute c ortical infarct. No midline shift, herniation or ventriculomegaly. Unremarkable lopez-white matter differentiation, basal cisterns, sella and CP angles. No gross space-o ccupying lesion, vasogenic edema or mass effect. Unremarkable orbits. Mucosal thickening of the maxillary sinuses, sphenoid sinus and ethmoid air cell s. Clear mastoid air cells. Unremarkable calvarial bones. IMPRESSION: No acute intracranial abnormality or gross space-occupying lesion by this nonenhanced CT scan. Parana pauline sinus disease as described above.
[2021-11-24 16:12] LABS: Partial Thromboplastin Time 20.1 sec (22.0-30.0)
--- NOTE | 2021-11-24 16:31 | CT ---
EXAMINATION TYPE: CT angio head neck DATE OF EXAM: 11/24/2021 HISTORY: Syncope and headache. COMPARISON: Nonenhanced CT scan of the brain performed earlier same day CT DLP: 529.9 mGycm. Automated Exposure Control for Dose Reduction was Utilized. TECHNIQUE: CTA scan of the neck is performed with IV Contrast, patient injected with 65 mL of Isovue 370, axial images are obtained, coronal and sagittal reformatted images are reviewed. 3D reconstruct ed images are created on an independent workstation and reviewed. FINDINGS: Carotid/Vascular Structures: Minimal atheromatous changes of the proximal portion of the left interna l carotid artery. Mild atherosclerotic calcifications of the cavernous portions of internal carotid a rteries. Otherwise normal caliber and enhancement of the intracranial arteries and major neck arterie s without significant stenosis, occlusion, dissection, aneurysm or AV malformation. Patent major intr acranial venous sinuses. Other: No intracranial abnormal enhancement. Slightly prominent palatine tonsils. Questionable tiny h ypodensity in the left thyroid lobe. Fatty infiltration versus previous resection of the left parotid gland, please correlate clinically. No gross aggressive bone lesion. Tiny sclerotic focus is seen in the right mandible condyle, possibly benign. Further bone scan assessment can be considered if clini stefany required. IMPRESSION: No significant stenosis, occlusion or other acute abnormality of the major neck or the intracranial a rteries. Incidental findings as described above.
== END 2021-11-24 18:01 | disposition home or self-care (01) ==
LOC: EC 13:17
DX: R42 Dizziness and giddiness (principal); E11.9 Type 2 diabetes mellitus without complications; I10 Essential (primary) hypertension; F17.220 Nicotine dependence, chewing tobacco, uncomplicated; Z79.84 Long term (current) use of oral hypoglycemic drugs; Z79.899 Other long term (current) drug therapy
CPT/HCPCS: 36415; 93005; 80053; 84484; 85025; 85610; 85730; 81003; 71046; 70496; 70450; 70498; 99285; 96374; J2765; Q9967

== ENCOUNTER 2023-10-25 05:49 | Day surgery (SDC) | payer BC ==
[2023-10-25] MEDS ORDERED: LIDOCAINE 1% (10MG/ML) FOR IV START INTRADERMA PRN (06:00)
[2023-10-25] MEDS: LACTATED RINGERS 1,000 ML IV SCH (06:17)
[2023-10-25 06:30] LABS: Glucose,Whole Blood 122 mg/dL (70-110)
[2023-10-25] MEDS ORDERED: PROPOFOL 10 MG/ML 20 ML VIAL IV ONE (06:59)
[2023-10-25 07:04] VITALS: TEMP 97.8
--- NOTE | 2023-10-25 07:26 | P.PCN ---
Date of Procedure: 10/25/23 Procedure(s) Performed: BRIEF HISTORY: Patient is a 58-year-old pleasant white male scheduled for an elective colonoscopy as a part of surveillance of of ulcerative colitis diagnosed in 2013. He is in clinical remission. PROCEDURE PERFORMED: Colonoscopy with random biopsies. PREOPERATIVE DIAGNOSIS: Long-standing history of ulcerative colitis. IV sedation per Anesthesia. PROCEDURE: After informed consent was obtained, the patient, was brought into the endoscopy unit. IV sedation was administered by Anesthesia under continuous monitoring. Digital rectal examination was normal. Initially the Olympus CF-160 flexible video colonoscope was then inserted in the rectum, gradually advanced into the cecum without any difficulty. Careful examination was performed as the scope was gradually being withdrawn. Ileocecal valve and the appendiceal orifice were visualized and appeared normal. Prep was excellent. Mucosa of the cecum, ascending colon, transverse colon, descending colon, sigmoid colon, and rectum appeared normal. Random biopsies were done from the cecum to rectum at 10 cm into well to rule out dysplasia. Retroflexion was performed in the rectum and no lesions were seen. The patient tolerated the procedure well. IMPRESSION: Normal-appearing colon from rectum to cecum no evidence of colorectal neoplasia . RECOMMENDATIONS: Findings of this examination were discussed with the patient as well as his family. He was advised to follow with the biopsy results. Continue with mesalamine 4.8 g daily. If the biopsy does not show any evidence of dysplasia he can plan a repeat colonoscopy in 2-3 years..
[2023-10-25 08:04] VITALS: BP 129/73; PULSE 65; RESP 16
== END 2023-10-25 08:14 | disposition home or self-care (01) ==
LOC: ORWHC2ENDO 05:49
PROVIDERS: ATTEND Internal Medicine Gastroenterology
DX: K51.90 Ulcerative colitis, unspecified, without complications (principal)
CPT/HCPCS: 45380; 88305; J2704

== ENCOUNTER 2023-11-27 13:07 | Observation (INO) | payer BC ==
--- NOTE | 2023-11-27 13:30 | ED ---
General Adult HPI - General Chief complaint: Chest Pain Stated complaint: Left side chest pain/ SOB Time Seen by Provider: 11/27/23 13:10 Source: patient, RN notes reviewed, old records reviewed Mode of arrival: ambulatory Limitations: no limitations - History of Present Illness Initial comments: This is a 58-year-old male with a past medical history significant for diabetes and hypertension and a strong family history of heart disease. Patient states he has been told he has had angina in the past. Patient comes in today because of for the last 3 hours she had some left-sided chest pain. Patient states it radiates to the left arm. Patient denies any diaphoretic episode or nausea. Patient denies shortness of breath. Patient states it started when he was walking upstairs at home. Patient denies any swelling to legs or calf tenderness. Patient states he has had an increased cough recently. Patient denies any fever or chills. - Related Data Home Medications Medication Instructions Recorded Confirmed Mesalamine [Lialda] 3.6 gm PO DAILY 08/26/16 11/27/23 Atorvastatin [Lipitor] 10 mg PO HS 10/06/21 11/27/23 Citalopram Hydrobromide [CeleXA] 20 mg PO HS 10/06/21 11/27/23 Losartan Potassium 100 mg PO DAILY 10/06/21 11/27/23 atenoloL [Tenormin] 25 mg PO DAILY 10/06/21 11/27/23 metFORMIN HCL 1,000 mg PO BID 11/24/21 11/27/23 Insulin Degludec [Tresiba 16 units SQ HS 11/27/23 11/27/23 Flextouch U-100 Pen] Insulin Degludec [Tresiba 18 units SQ DAILY 11/27/23 11/27/23 Flextouch U-100 Pen] Semaglutide [Ozempic] 2 mg SQ SEGURA 11/27/23 11/27/23 Allergies Allergy/AdvReac Type Severity Reaction Status Date / Time No Known Allergies Allergy Verified 11/27/23 14:38 Review of Systems ROS Statement: Those systems with pertinent positive or pertinent negative responses have been documented in the HPI. ROS Other: All systems not noted in ROS Statement are negative. Past Medical History Past Medical History: Diabetes Mellitus, Hyperlipidemia, Hypertension Additional Past Medical History / Comment(s): ULCERATIVE COLITIS History of Any Multi-Drug Resistant Organisms: None Reported Past Surgical History: Orthopedic Surgery Additional Past Surgical History / Comment(s): Acromioplasty excision distal clavicle right rotator cuff repair, colonoscopies, procedure at [facility] for headaches. Past Anesthesia/Blood Transfusion Reactions: No Reported Reaction Past Psychological History: No Psychological Hx Reported Smoking Status: Former smoker, Vaper Past Alcohol Use History: Occasional Past Drug Use History: None Reported - Past Family History Father Family Medical History: Diabetes Mellitus, Myocardial Infarction ([place]), Vascular Disorder Mother Family Medical History: Cancer, Diabetes Mellitus Additional Family Medical History / Comment(s): Melanoma. Brother(s) Family Medical History: Diabetes Mellitus, Myocardial Infarction ([place]) General Exam - General Exam Comments Initial Comments: GENERAL: Patient is well-developed and well-nourished. Patient is nontoxic and well- hydrated and is in mild distress. ENT: Neck is soft and supple. No significant lymphadenopathy is noted. Oropharynx is clear. Moist mucous membranes. Neck has full range of motion without eliciting any pain. EYES: The sclera were anicteric and conjunctiva were pink and moist. Extraocular movements were intact and pupils were equal round and reactive to light. Eyelids were unremarkable. PULMONARY: Unlabored respirations. Good breath sounds bilaterally. No audible rales rhonchi or wheezing was noted. CARDIOVASCULAR: There is a regular rate and rhythm without any murmurs gallops or rubs. ABDOMEN: Soft and nontender with normal bowel sounds. SKIN: Skin is clear with no lesions or rashes and otherwise unremarkable. NEUROLOGIC: Patient is alert and oriented x3. Cranial nerves II through XII are grossly intact. Motor and sensory are also intact. Normal speech, volume and content. Symmetrical smile. MUSCULOSKELETAL: Normal extremities with adequate strength and full range of motion. No lower extremity swelling or edema. No calf tenderness. LYMPHATICS: No significant lymphadenopathy is noted PSYCHIATRIC: Normal psychiatric evaluation. Limitations: no limitations Course Vital Signs 11/27/23 11/27/23 11/27/23 13:10 13:28 14:12 Temperature 98 F Pulse Rate 68 74 64 Respiratory 18 16 18 Rate Blood Pressure 118/66 147/84 125/82 O2 Sat by Pulse 99 95 Oximetry Medical Decision Making - Medical Decision Making EKG is interpreted by myself but EKG shows a sinus rhythm at 70 bpm OK interval 170 QRS 94 QT interval 350 QTc is 371. Patient's EKG shows no ST segment elevation or depression Was pt. sent in by a medical professional or institution (, SHAHLA, DIGESTION OPERATOR, urgent care, hospital, or senior care...) When possible be specific @ -No Did you speak to anyone other than the patient for history (EMS, parent, family, police, friend...)? What history was obtained from this source @ -No Did you review nursing and triage notes (agree or disagree)? Why? @ -I reviewed and agree with nursing and triage notes Were old charts reviewed (outside hosp., previous admission, EMS record, old EKG, old radiological studies, urgent care reports/EKG's, senior care records)? Report findings @ -I reviewed prior charts and prior lab work on this patient Differential Diagnosis (chest pain, altered mental status, abdominal pain women, abdominal pain men, vaginal bleeding, weakness, fever, dyspnea, syncope, headache, dizziness, GI bleed, back pain, seizure, CVA, palpatations, mental health, musculoskeletal)? @ -Differential Chest Pain: Stable Angina, Unstable Angina, STEMI, NSTEMI Aortic Dissection, Pneumothorax, Musculoskeletal, Esophageal Spasm GERD, Cholecystitis, Pancreatitis, Zoster, this is not meant to be an all-inclusive list. EKG interpreted by me (3pts min.). @ -As above X-rays interpreted by me (1pt min.). @ -Chest x-ray shows no acute abnormality CT interpreted by me (1pt min.). @ -None done U/S interpreted by me (1pt. min.). @ -None done What testing was considered but not performed or refused? (CT, X-rays, U/S, labs)? Why? @ -None What meds were considered but not given or refused? Why? @ -None Did you discuss the management of the patient with other professional (i.e. , SHAHLA, DIGESTION OPERATOR, lab, RT, psych nurse, social media editor, coal mine inspector, teacher, radiation officer, family service caseworker)? Give summary @ -I spoke with Dr. Luque and she agreed to admit Was smoking cessation discussed for >3mins.? @ -No Was critical care preformed (if so, how long)? @ -No Were there social determinants of health that impacted care today? How? (Homelessness, low income, unemployed, alcoholism, drug addiction, transportation, low edu. Level, literacy, decrease access to med. care, group home, rehab)? @ -No Was there de-escalation of care discussed even if they declined (Discuss DNR or withdrawal of care, Hospice)? DNR status @ -No What co-morbidities impacted this encounter? (DM, HTN, Smoking, COPD, CAD, Cancer, CVA, ARF, Chemo, Hep., AIDS, mental health diagnosis, sleep apnea, morbid obesity)? @ -None Was patient admitted / discharged? Hospital course, mention meds given and route, prescriptions, significant lab abnormalities, going to OR and other pertinent info. @ -Patient was given aspirin and Nitropaste in the emergency department. Patient's lab work came back within normal range. Patient chest x-ray showed no acute normality. Spoke with Dr. Luque she agreed to admit the patient and the patient was admitting orders Undiagnosed new problem with uncertain prognosis? @ -No Drug Therapy requiring intensive monitoring for toxicity (Heparin, Nitro, Insulin, Cardizem)? @ -No Were any procedures done? @ -No Diagnosis/symptom? @ -Chest pain Acute, or Chronic, or Acute on Chronic? @ -Acute Uncomplicated (without systemic symptoms) or Complicated (systemic symptoms)? @ -Complicated Side effects of treatment? @ -No Exacerbation, Progression, or Severe Exacerbation? @ -No Poses a threat to life or bodily function? How? (Chest pain, [place], [place], pneumonia, PE, COPD, DKA, ARF, appy, cholecystitis, CVA, Diverticulitis, Homicidal, Suicidal, threat to staff... and all critical care pts) @ -Yes this could lead to [place] and end organ dysfunction while - Lab Data Result diagrams: 11/27/23 13:26 11/27/23 13:26 Lab Results 11/27/23 11/27/23 11/27/23 Range/Units 13:26 13:26 13:26 WBC 5.7 (3.8-10.6) k/uL RBC 4.80 (4.30-5.90) m/uL Hgb 14.8 (13.0-17.5) gm/dL Hct 42.4 (39.0-53.0) % MCV 88.4 (80.0-100.0) fL MCH 30.9 (25.0-35.0) pg MCHC 35.0 (31.0-37.0) g/dL RDW 12.6 (11.5-15.5) % Plt Count 181 (150-450) k/uL MPV 8.5 Neutrophils % 60 % Lymphocytes % 27 % Monocytes % 5 % Eosinophils % 5 % Basophils % 1 % Neutrophils # 3.4 (1.3-7.7) k/uL Lymphocytes # 1.6 (1.0-4.8) k/uL Monocytes # 0.3 (0-1.0) k/uL Eosinophils # 0.3 (0-0.7) k/uL Basophils # 0.1 (0-0.2) k/uL PT 10.4 (10.0-12.5) sec INR 0.9 (<1.2) APTT 27.8 (22.0-30.0) sec D-Dimer 0.17 (<0.60) mg/L FEU Sodium 139 (137-145) mmol/L Potassium 4.4 (3.5-5.1) mmol/L Chloride 106 (98-107) mmol/L Carbon Dioxide 26 (22-30) mmol/L Anion Gap 7 mmol/L BUN 16 (9-20) mg/dL Creatinine 0.75 (0.66-1.25) mg/dL Est GFR (CKD-EPI)AfAm >90 (>60 ml/min/1.73 sqM) Est GFR (CKD-EPI)NonAf >90 (>60 ml/min/1.73 sqM) Glucose 138 H (74-99) mg/dL Calcium 9.5 (8.4-10.2) mg/dL Magnesium 2.2 (1.6-2.3) mg/dL Total Bilirubin 0.6 (0.2-1.3) mg/dL AST 29 (17-59) U/L ALT 30 (4-49) U/L Alkaline Phosphatase 56 (38-126) U/L Troponin I (0.000-0.034) ng/mL Total Protein 7.8 (6.3-8.2) g/dL Albumin 4.8 (3.5-5.0) g/dL Influenza Type A (PCR) (Not Detectd) Influenza Type B (PCR) (Not Detectd) RSV (PCR) (Not Detectd) SARS-CoV-2 (PCR) (Not Detectd) 11/27/23 11/27/23 Range/Units 13:26 13:26 WBC (3.8-10.6) k/uL RBC (4.30-5.90) m/uL Hgb (13.0-17.5) gm/dL Hct (39.0-53.0) % MCV (80.0-100.0) fL MCH (25.0-35.0) pg MCHC (31.0-37.0) g/dL RDW (11.5-15.5) % Plt Count (150-450) k/uL MPV Neutrophils % % Lymphocytes % % Monocytes % % Eosinophils % % Basophils % % Neutrophils # (1.3-7.7) k/uL Lymphocytes # (1.0-4.8) k/uL Monocytes # (0-1.0) k/uL Eosinophils # (0-0.7) k/uL Basophils # (0-0.2) k/uL PT (10.0-12.5) sec INR (<1.2) APTT (22.0-30.0) sec D-Dimer (<0.60) mg/L FEU Sodium (137-145) mmol/L Potassium (3.5-5.1) mmol/L Chloride (98-107) mmol/L Carbon Dioxide (22-30) mmol/L Anion Gap mmol/L BUN (9-20) mg/dL Creatinine (0.66-1.25) mg/dL Est GFR (CKD-EPI)AfAm (>60 ml/min/1.73 sqM) Est GFR (CKD-EPI)NonAf (>60 ml/min/1.73 sqM) Glucose (74-99) mg/dL Calcium (8.4-10.2) mg/dL Magnesium (1.6-2.3) mg/dL Total Bilirubin (0.2-1.3) mg/dL AST (17-59) U/L ALT (4-49) U/L Alkaline Phosphatase (38-126) U/L Troponin I <0.012 (0.000-0.034) ng/mL Total Protein (6.3-8.2) g/dL Albumin (3.5-5.0) g/dL Influenza Type A (PCR) Not Detected (Not Detectd) Influenza Type B (PCR) Not Detected (Not Detectd) RSV (PCR) Not Detected (Not Detectd) SARS-CoV-2 (PCR) Not Detected (Not Detectd) Disposition Clinical Impression: Chest pain Disposition: ADMITTED IP TO THIS HOSP Referrals: Ajay Hope DO [Primary Care Provider] - 1-2 days Time of Disposition: 14:52
[2023-11-27] MEDS: ASPIRIN 81 MG PO STA (13:51)
[2023-11-27] MEDS: NITROGLYCERIN OINT 1 INCH/GM PACKET TOPICAL STA (13:51)
[2023-11-27 13:55] LABS: Basophils # (A) 0.1 k/uL (0-0.2); Basophils % (A) 1 %; Eosinophils # (A) 0.3 k/uL (0-0.7); Eosinophils % (A) 5 %; HCT 42.4 % (39.0-53.0); HGB 14.8 gm/dL (13.0-17.5); Lymphocytes # (A) 1.6 k/uL (1.0-4.8); Lymphocytes % (A) 27 %; MCH 30.9 pg (25.0-35.0); MCV 88.4 fL (80.0-100.0); Mean Platelet Volume 8.5; Monocytes # (A) 0.3 k/uL (0-1.0); Monocytes % (A) 5 %; Neutrophils # (A) 3.4 k/uL (1.3-7.7); Neutrophils % (A) 60 %; Platelet Count 181 k/uL (150-450); RDW 12.6 % (11.5-15.5); WBC 5.7 k/uL (3.8-10.6)
--- NOTE | 2023-11-27 14:03 | XR ---
EXAMINATION TYPE: XR chest 2V DATE OF EXAM: 11/27/2023 COMPARISON: 11/24/2021 HISTORY: 58-year-old male with chest pain TECHNIQUE: PA and lateral views FINDINGS: Heart normal size. Aorta and coronary vasculature within normal limits. Mild interstitial prominence is unchanged. No consolidation or pleural effusion. IMPRESSION: Chronic changes without acute cardiopulmonary process.
[2023-11-27 14:15] LABS: INR 0.9 (<1.2); Partial Thromboplastin Time 27.8 sec (22.0-30.0); Prothrombin Time 10.4 sec (10.0-12.5)
[2023-11-27 14:46] LABS: ALT 30 U/L (4-49); AST 29 U/L (17-59); African American GFR (CKD) >90 (>60 ml/min/1.73 sqM); Albumin 4.8 g/dL (3.5-5.0); Alkaline Phosphatase 56 U/L (38-126); Anion Gap 7 mmol/L; Blood Urea Nitrogen 16 mg/dL (9-20); Calcium 9.5 mg/dL (8.4-10.2); Carbon Dioxide 26 mmol/L (22-30); Chloride 106 mmol/L (98-107); Glucose 138 mg/dL (74-99); Magnesium 2.2 mg/dL (1.6-2.3); Non-African American GFR(CKD) >90 (>60 ml/min/1.73 sqM); Potassium 4.4 mmol/L (3.5-5.1); Sodium 139 mmol/L (137-145); Total Bilirubin 0.6 mg/dL (0.2-1.3); Total Protein 7.8 g/dL (6.3-8.2)
[2023-11-27] MEDS ORDERED: NITROGLYCERIN SL TABS 0.4 MG TAB SUBLINGUAL PRN (15:04)
[2023-11-27] MEDS ORDERED: ONDANSETRON 4 MG/2 ML VIAL IVP PRN (15:22)
[2023-11-27] MEDS ORDERED: NICOTINE GUM (POLACRILEX) 2 MG GUM BUCCAL PRN (15:22)
[2023-11-27] MEDS ORDERED: MELATONIN 3 MG TABLET PO PRN (15:22)
[2023-11-27] MEDS ORDERED: HYDROcodone/APAP 5-325MG 1 EACH TAB PO PRN (15:22)
[2023-11-27] MEDS ORDERED: ACETAMINOPHEN TAB 325 MG TAB PO PRN (15:22)
[2023-11-27] MEDS ORDERED: NALOXONE 0.4 MG/ML 1 ML VIAL IVP PRN (15:22)
[2023-11-27] MEDS ORDERED: DEXTROSE 50% SYRINGE 50 ML IVP PRN ×2 (15:25)
--- NOTE | 2023-11-27 15:30 | P.HPIM ---
History of Present Illness H&P Date: 11/27/23 Patient is a 58-year-old male with a history of diabetes mellitus type 2, hypertension, dyslipidemia, and ulcerative colitis who presented to the emergency department with complaints of chest pain. Labs in the emergency department included CBC, coags, D-dimer, CMP, and troponin all of which were unremarkable. Influenza A/B/RSV/COVID-19 testing was negative. Vital signs within normal limits. Chest x-ray showed no acute process. EKG demonstrated normal sinus rhythm at a rate of [address]-T wave changes, and normal axis. He received Nitropaste in the emergency department with helped with his chest pain. Arrangements were made for admission. Patient seen and examined at bedside. He reports that today he was walking up the stairs to get ready and he started having chest pain. This occurred about 3 hours prior to arrival. Initially it was just left-sided chest pain and then later it began radiating to his left arm and his left shoulder. It was associated with shortness of breath. He had some lightheadedness and queasiness. He denies any diaphoresis or palpitations. He reports that this initially began to ease but when he started to drive to activity it recurred again and he therefore presented to the emergency department He reports a history of a similar type episode 20 years ago when he was in his 30s. At that point in time he saw Dr. Buenrostro and had a stress test. He was subsequently diagnosed with Prinzmetal angina. But he has never had an another episode since. He reports that he now vapes but before that was a heavy smoker at 2-1/2 packs/day. He does not use any other street drugs. He has a strong family history of early onset coronary disease in both his brother and his father with MIs prior to the age of 60. Approximately 2 weeks ago he had a diarrheal illness and last week he had a cough. No other recent illnesses. No recent changes in medications. He reports that he is an insulin-dependent diabetic and typically his sugars run between 120-180 but for the last week they have been running in the 200s without a change in his diet or medications. Vital signs reviewed General: nontoxic, no distress, appears at stated age Derm: warm, dry Eyes: EOMI, no lid lag, anicteric sclera, pupils equal round reactive to light ENT: Nose and ears atraumatic Cardiovascular: S1S2 reg, no murmur, no edema Lungs: clear to auscultation bilateral, no rhonchi, no rales, no wheeze, no accessory muscle use Abdominal: soft, nontender to palpation, no guarding Ext: no gross muscle atrophy, no contractures Neuro: CN II-XII grossly intact, No focal neuro deficits Psych: Alert, oriented, appropriate affect Assessment/Plan: Chest pain concern for acute coronary syndrome Hypertension Dyslipidemia -Trend troponin -Aspirin 81 mg daily, Lipitor 40 mg daily, resume atenolol 25 mg daily. -Consult cardiology -Telemetry - nitro patch -Anticipate stress test in a.m. Diabetes mellitus type 2 insulin requiring. -Will take 75% of his nighttime dose at 11 units of long-acting. Will hold his long-acting daytime insulin until after he can be placed back on a diet. -Sliding scale insulin -Hold metformin and semaglutide Ulcerative colitis -Continue mesalamine Imaging: As per HPI Data Review: As per HPI The patient is admitted with an anticipated less than 2 midnight stay for evaluation of chest pain. Anticipated discharge date: 24 to [address]: Home This dictation was prepared using [employer] voice recognition software. Though every attempt is made to correct errors during dictation some may still exist. Past Medical History Past Medical History: Diabetes Mellitus, Hyperlipidemia, Hypertension Additional Past Medical History / Comment(s): ULCERATIVE COLITIS History of Any Multi-Drug Resistant Organisms: None Reported Past Surgical History: Orthopedic Surgery Additional Past Surgical History / Comment(s): Acromioplasty excision distal clavicle right rotator cuff repair, colonoscopies, procedure at [facility] for headaches. Past Anesthesia/Blood Transfusion Reactions: No Reported Reaction Past Psychological History: No Psychological Hx Reported Smoking Status: Former smoker, Vaper Past Alcohol Use History: Occasional Past Drug Use History: None Reported - Past Family History Father Family Medical History: Diabetes Mellitus, Myocardial Infarction ([place]), Vascular Disorder Mother Family Medical History: Cancer, Diabetes Mellitus Additional Family Medical History / Comment(s): Melanoma. Brother(s) Family Medical History: Diabetes Mellitus, Myocardial Infarction ([place]) Medications and Allergies Home Medications Medication Instructions Recorded Confirmed Type Mesalamine [Lialda] 3.6 gm PO DAILY 08/26/16 11/27/23 History Atorvastatin [Lipitor] 10 mg PO HS 10/06/21 11/27/23 History Citalopram Hydrobromide [CeleXA] 20 mg PO HS 10/06/21 11/27/23 History Losartan Potassium 100 mg PO DAILY 10/06/21 11/27/23 History atenoloL [Tenormin] 25 mg PO DAILY 10/06/21 11/27/23 History metFORMIN HCL 1,000 mg PO BID 11/24/21 11/27/23 History Insulin Degludec [Tresiba 16 units SQ HS 11/27/23 11/27/23 History Flextouch U-100 Pen] Insulin Degludec [Tresiba 18 units SQ DAILY 11/27/23 11/27/23 History Flextouch U-100 Pen] Semaglutide [Ozempic] 2 mg SQ SEGURA 11/27/23 11/27/23 History Allergies Allergy/AdvReac Type Severity Reaction Status Date / Time No Known Allergies Allergy Verified 11/27/23 14:38 Physical Exam Osteopathic Statement: *. No significant issues noted on an osteopathic structural exam other than those noted in the History and Physical/Consult. Vitals: Vital Signs Temp Pulse Resp BP Pulse Ox 11/27/23 14:12 64 18 125/82 95 11/27/23 13:28 74 16 147/84 11/27/23 13:10 98 F 68 18 118/66 99 Intake and Output 11/27/23 11/27/23 11/27/23 06:59 14:59 22:59 Other: Weight 92.079 kg Results CBC & Chem 7: 11/27/23 13:26 11/27/23 13:26 Labs: Abnormal Lab Results - Last 24 Hours (Table) 11/27/23 Range/Units 13:26 Glucose 138 H (74-99) mg/dL
[2023-11-27 15:58] VITALS: RESP 16
[2023-11-27 15:59] LABS: Glucose,Whole Blood 85 mg/dL (70-110)
[2023-11-27 17:23] LABS: Glucose,Whole Blood 159 mg/dL (70-110)
[2023-11-27] MEDS: INSULIN ASPART (NovoLOG) 100 UNIT/ML VIAL SQ SCH (18:03)
[2023-11-27] MEDS: NITROGLYCERIN OINT 1 INCH/GM PACKET TOPICAL SCH (18:03)
[2023-11-27 21:35] LABS: Glucose,Whole Blood 255 mg/dL (70-110)
[2023-11-27] MEDS: INSULIN DETEMIR (LEVEMIR) 100 UNIT/ML SYR SQ SCH (21:38)
[2023-11-28 06:01] LABS: Glucose,Whole Blood 159 mg/dL (70-110)
[2023-11-28 08:42] LABS: LDL Cholesterol,Calculated 31.9 mg/dL (0.0-131.0)
--- NOTE | 2023-11-28 08:43 | P.CRDCN ---
History of Present Illness Consult date: 11/28/23 Chief complaint: cp History of present illness: The patient is a very pleasant 58-year-old gentleman with a past medical history significant for diabetes and hypertension and dyslipidemia and history of smoking and significant family history of cardiovascular disease presented to the hospital complaining of chest discomfort. He was in his usual state of health till yesterday when he was walking upstairs at home and started experiencing discomfort in the middle of the chest as a dull feeling with some radiation to his left arm with no associated symptoms of any dizziness or lightheadedness or presyncope or syncope and no sweating. He decided to come to the emergency department for further evaluation. The chest discomfort lasted about 30 minutes. He underwent further workup including an EKG and that showed sinus mechanism with no significant ST or T wave abnormalities and also he underwent cardiac enzymes came in to be unremarkable. The blood work overall came in to be unremarkable. Currently he is experiencing very mild chest discomfort on the left side of the chest which has been improving. No history of coronary artery disease but multiple risk factors as described above. Examination is remarkable for regular rhythm with a soft systolic murmur at the right upper sternal border with a clear breathing sounds bilaterally and no carotid bruit and no edema was noted Assessment Atypical chest discomfort Multiple risk factors including diabetes and hypertension and dyslipidemia Plan Continue current medical regimen Acute coronary event was ruled out Further cardiac investigation and risk stratification including stress test and echocardiogram Follow-up with the patient Past Medical History Past Medical History: Diabetes Mellitus, Hyperlipidemia, Hypertension Additional Past Medical History / Comment(s): ULCERATIVE COLITIS History of Any Multi-Drug Resistant Organisms: None Reported Past Surgical History: Orthopedic Surgery Additional Past Surgical History / Comment(s): Acromioplasty excision distal clavicle right rotator cuff repair, colonoscopies, procedure at [facility] for headaches. Past Anesthesia/Blood Transfusion Reactions: No Reported Reaction Past Psychological History: No Psychological Hx Reported Smoking Status: Former smoker, Vaper Past Alcohol Use History: Occasional Past Drug Use History: None Reported - Past Family History Father Family Medical History: Diabetes Mellitus, Myocardial Infarction ([place]), Vascular Disorder Mother Family Medical History: Cancer, Diabetes Mellitus Additional Family Medical History / Comment(s): Melanoma. Brother(s) Family Medical History: Diabetes Mellitus, Myocardial Infarction ([place]) Medications and Allergies Home Medications Medication Instructions Recorded Confirmed Type Mesalamine [Lialda] 3.6 gm PO DAILY 08/26/16 11/27/23 History Atorvastatin [Lipitor] 10 mg PO HS 10/06/21 11/27/23 History Citalopram Hydrobromide [CeleXA] 20 mg PO HS 10/06/21 11/27/23 History Losartan Potassium 100 mg PO DAILY 10/06/21 11/27/23 History atenoloL [Tenormin] 25 mg PO DAILY 10/06/21 11/27/23 History metFORMIN HCL 1,000 mg PO BID 11/24/21 11/27/23 History Insulin Degludec [Tresiba 16 units SQ HS 11/27/23 11/27/23 History Flextouch U-100 Pen] Insulin Degludec [Tresiba 18 units SQ DAILY 11/27/23 11/27/23 History Flextouch U-100 Pen] Semaglutide [Ozempic] 2 mg SQ SEGURA 11/27/23 11/27/23 History Allergies Allergy/AdvReac Type Severity Reaction Status Date / Time No Known Allergies Allergy Verified 11/27/23 14:38 Physical Exam Vitals: Vital Signs Temp Pulse Pulse Resp BP BP Pulse Ox 11/28/23 02:00 97.5 F L 64 16 143/82 94 L 11/27/23 20:00 98.2 F 82 16 116/66 94 L 11/27/23 16:32 98.3 F 69 16 125/69 98 11/27/23 16:03 66 16 117/77 97 11/27/23 15:00 62 16 117/74 98 11/27/23 14:12 64 18 125/82 95 11/27/23 13:28 74 16 147/84 11/27/23 13:10 98 F 68 18 118/66 99 Intake and Output 11/27/23 11/28/23 11/28/23 22:59 06:59 14:59 Intake Total 360 0 Balance 360 0 Intake: Oral 360 0 Other: Voiding Method Toilet # Voids 2 2 Weight 92.079 kg Results 11/27/23 13:26 11/27/23 13:26 Cardiac Enzymes 11/27/23 11/27/23 11/27/23 Range/Units 13:26 13:26 16:33 AST 29 (17-59) U/L Troponin I <0.012 <0.012 (0.000-0.034) ng/mL 11/27/23 11/27/23 Range/Units 19:49 23:03 AST (17-59) U/L Troponin I <0.012 <0.012 (0.000-0.034) ng/mL Coagulation 11/27/23 Range/Units 13:26 PT 10.4 (10.0-12.5) sec APTT 27.8 (22.0-30.0) sec CBC 11/27/23 Range/Units 13:26 WBC 5.7 (3.8-10.6) k/uL RBC 4.80 (4.30-5.90) m/uL Hgb 14.8 (13.0-17.5) gm/dL Hct 42.4 (39.0-53.0) % Plt Count 181 (150-450) k/uL Comprehensive Metabolic Panel 11/27/23 Range/Units 13:26 Sodium 139 (137-145) mmol/L Potassium 4.4 (3.5-5.1) mmol/L Chloride 106 (98-107) mmol/L Carbon Dioxide 26 (22-30) mmol/L BUN 16 (9-20) mg/dL Creatinine 0.75 (0.66-1.25) mg/dL Glucose 138 H (74-99) mg/dL Calcium 9.5 (8.4-10.2) mg/dL AST 29 (17-59) U/L ALT 30 (4-49) U/L Alkaline Phosphatase 56 (38-126) U/L Total Protein 7.8 (6.3-8.2) g/dL Albumin 4.8 (3.5-5.0) g/dL Current Medications Generic Name Dose Route Start Last Admin Trade Name Freq PRN Reason Stop Dose Admin Acetaminophen 650 mg 11/27/23 15:22 Acetaminophen Tab 325 Mg Tab PO Q6HR PRN Mild Pain or Fever > 100.5 Hydrocodone Bitart/Acetaminophen 1 each 11/27/23 15:22 Hydrocodone/Apap 5-325mg 1 Each Tab PO Q4HR PRN Moderate Pain (Scale 4 to 6) Aspirin 325 mg 11/28/23 09:00 Aspirin 325 Mg Tab PO DAILY [facility] Atorvastatin Calcium 40 mg 11/28/23 09:00 Atorvastatin 40 Mg Tab PO DAILY [facility] Dextrose/Water 25 ml 11/27/23 15:25 Dextrose 50% Syringe 50 Ml IVP PER PROTOCOL PRN Hypoglycemia Protocol Dextrose/Water 50 ml 11/27/23 15:25 Dextrose 50% Syringe 50 Ml IVP PER PROTOCOL PRN Hypoglycemia Protocol Insulin Aspart 0 unit 11/27/23 17:30 11/28/23 06:28 Insulin Aspart (Novolog) 100 Unit/Ml Vial SQ 2 unit ACHS KRISTOFER Administration Protocol Insulin Detemir 11 unit 11/27/23 21:00 11/27/23 21:38 Insulin Detemir (Levemir) 100 Unit/Ml Syr SQ 11 unit HS KRISTOFER Administration Melatonin 3 mg 11/27/23 15:22 Melatonin 3 Mg Tablet PO HS PRN Insomnia Naloxone HCl 0.2 mg 11/27/23 15:22 Naloxone 0.4 Mg/Ml 1 Ml Vial IVP Q2M PRN Opioid Reversal Nicotine Polacrilex 2 mg 11/27/23 15:22 Nicotine Gum (Polacrilex) 2 Mg Gum BUCCAL Q2HR PRN Nicotine Cravings Nitroglycerin 0.4 mg 11/27/23 15:04 Nitroglycerin Sl Tabs 0.4 Mg Tab SUBLINGUAL Q5M PRN Chest Pain Nitroglycerin 1 inch 11/27/23 18:00 11/28/23 05:11 Nitroglycerin Oint 1 Inch/Gm Packet TOPICAL Not Given Q6HR [facility] Ondansetron HCl 4 mg 11/27/23 15:22 Ondansetron 4 Mg/2 Ml Vial IVP Q8HR PRN Nausea And Vomiting Intake and Output 11/27/23 11/28/23 11/28/23 22:59 06:59 14:59 Intake Total 360 0 Balance 360 0 Intake: Oral 360 0 Other: Voiding Method Toilet # Voids 2 2 Weight 92.079 kg 11/27/23 13:26 11/27/23 13:26
[2023-11-28] MEDS: ASPIRIN 325 MG TAB PO SCH (09:40)
[2023-11-28] MEDS: ATORVASTATIN 40 MG TAB PO SCH (09:40)
[2023-11-28 12:42] LABS: Glucose,Whole Blood 114 mg/dL (70-110)
--- NOTE | 2023-11-28 13:17 | CA ---
Transthoracic Echo Report Name: Freddie Zhong Age: 58 Gender: M : 1965 Exam Date: 11/28/2023 10:33 Exam Location: [place] [facility] Ht (in): 70 Wt (lb): 203 Ordering Physician: Jerson Lopez MD ([id number]) Attending/Referring Phys: Information Systems Security Specialist Gerda Cobos RDCS Procedure CPT: Indications: CP Cardiac Hx: Technical Quality: Good Contrast 1: Total Dose (mL): Contrast 2: Total Dose (mL): MEASUREMENTS (Male / Female) Normal Values 2D ECHO LV Diastolic Diameter PLAX 4.9 cm 4.2 - 5.9 / 3.9 - 5.3 cm LV Systolic Diameter PLAX 3.2 cm IVS Diastolic Thickness 1.1 cm 0.6 - 1.0 / 0.6 - 0.9 cm LVPW Diastolic Thickness 1.1 cm 0.6 - 1.0 / 0.6 - 0.9 cm LV Relative Wall Thickness 0.4 RV Internal Dim ED PLAX 4.0 cm LA Systolic Diameter LX 3.8 cm 3.0 - 4.0 / 2.7 - 3.8 cm LV Diastolic Volume MOD 4C 148.8 cm??? LV Systolic Volume MOD 4C 74.1 cm??? LV Ejection Fraction MOD 4C 50.2 % LV Cardiac Index MOD 4C 1941.9 cm???/min???m??? LV Diastolic Length 4C 8.4 cm LV Systolic Length 4C 6.9 cm LV Diastolic Volume MOD 2C 94.4 cm??? LV Systolic Volume MOD 2C 36.5 cm??? LV Ejection Fraction MOD 2C 61.3 % LV Cardiac Index MOD 2C 1504.6 cm???/min???m??? LV Diastolic Length 2C 8.6 cm LV Systolic Length 2C 7.2 cm LA Volume 56.1 cm??? 18 - 58 / 22 - 52 cm??? LA Volume Index 26.1 cm???/m??? 16 - 28 cm???/m??? M-MODE Aortic Root Diameter MM 3.3 cm AV Cusp Separation MM 2.5 cm DOPPLER AV Peak Velocity 112.9 cm/s AV Peak Gradient 5.1 mmHg MV Area PHT 3.6 cm??? Mitral E Point Velocity 79.9 cm/s Mitral A Point Velocity 69.1 cm/s Mitral E to A Ratio 1.2 MV Deceleration Time 208.3 ms TR Peak Velocity 227.6 cm/s TR Peak Gradient 20.7 mmHg Right Ventricular Systolic Press 24.9 mmHg FINDINGS Left Ventricle Left ventricular ejection fraction is estimated at 60-65 %. Normal left ventricular wall motion. Left ventricular cavity size normal. Left ventricular wall thickness normal. Right Ventricle Moderate right ventricular dilatation. Right ventricular systolic pressure within normal limits. Right Atrium Normal right atrial size. Left Atrium Mildly increased left atrial area. Mitral Valve Structurally normal mitral valve. Trace mitral regurgitation. Aortic Valve Trileaflet aortic valve. No aortic valve stenosis or regurgitation. Tricuspid Valve Structurally normal tricuspid valve. Mild tricuspid regurgitation. Pulmonic Valve Structurally normal pulmonic valve. No pulmonic regurgitation. Pericardium No pericardial effusion. Aorta Normal size aortic root and proximal ascending aorta. CONCLUSIONS Normal LV systolic function No significant valvular abnormalities noted No pericardial effusion Previewed by: Dr. Jerson Lopez MD (Electronically Signed) Final Date: 28 November 2023 13:16
--- NOTE | 2023-11-28 13:20 | CA ---
Stress Echo Report Freddie Zhong Age: 58 Gender: M : 1965 Exam Date: 11/28/2023 11:12 Exam Location: [place] [facility] Ht (in): 70 Wt (lb): 203 Ordering Physician: Jerson Lopez MD ([id number]) Referring Physician: MIKE,, Statistician Applied: Alva Cruz RDCS Technologist Procedure CPT: Indication: CP ICD-9 Codes: Rhythm: Patient History: CHEST PAIN, DIFFICULTY IN BREATHING, HTN, NUMBNESS IN FACE/NECK, DIABETES, ELEVATED CHOLESTEROL LEVELS, FAMILY HX OF HEART DISEASE, CURRENT SMOKER (VAPE) Cardiac Medications: Medications in past 24 hours: Contrast: Stress Results Protocol: Brad Total dose(mL): Exercise Duration (min:sec): Max ST Depression (mm): Angina Score: Dennis Score: METS: 9.7 Resting HR: 82 Resting BP: 126 / 81 Peak HR: 135 Peak BP: / 74 Max Predicted HR: 162 83 % Max Predicted HR Target HR: 138 Double Product: Stress Summary: BP Response: Reason for Termination: MAX EXERTION, DIRECTED PER Cardiac Symptoms: CHEST PAIN ECG Analysis Resting ECG: Stress ECG: Arrhythmia: Echo Analysis Resting Echo: Peak Echo Analysis: MEASUREMENTS (Male/Female) Normal Values CONCLUSIONS Excellent exercise tolerance. The patient exercised for 8 minutes Normal electrocardiogram and echocardiogram in response to exercise Dr. Jerson Lopez MD (Electronically Signed) Final Date: 28 November 2023 13:20
--- NOTE | 2023-11-28 14:37 | P.DS ---
Providers Date of admission: 11/27/23 15:05 Expected date of discharge: 11/28/23 Attending physician: Yoly Tsang DO Consults: 11/27/23 15:04 Consult Physician Urgent Consulting Provider: [facility] Consult Reason/Comments: Chest pain Do you want consulting provider notified?: Yes Primary care physician: Ajay Hope [facility] Course: Chest pain concern for acute coronary syndrome Hypertension Dyslipidemia Diabetes mellitus type 2 insulin requiring. Ulcerative colitis Hospital Course: Patient is a 58-year-old male with a history of diabetes mellitus type 2, hypertension, dyslipidemia, and ulcerative colitis who presented to the emergency department with complaints of chest pain. Labs in the emergency department included CBC, coags, D-dimer, CMP, and troponin all of which were unremarkable. Influenza A/B/RSV/COVID-19 testing was negative. Vital signs within normal limits. Chest x-ray showed no acute process. EKG demonstrated normal sinus rhythm at a rate of [address]-T wave changes, and normal axis. He received Nitropaste in the emergency department with helped with his chest pain. Arrangements were made for admission. Pt seen by cardiology and underwent Echo, which was normal, and dobutamine stress echo, which did not show reversible ischemia. He was subsequently discharged home with PCP f/u. Gen: In NAD, non-toxic HEENT: normocephalic, atraumatic, hearing acuity is intant, mucous membranes moist CVS: perfusing all extremities well, no pitting edema, Respiratory: symmetric chest expansion, no accessory muscle use, GI: soft, NTTP, ND, : no suprapubic tenderness, no CVA tenderness MSK/Derm: no rashes, cyanosis Neuro: CN II-XII intact, no motor weakness, Psych: cooperative, euthymic mood, judgment and insight is intact Patient Condition at Discharge: Good Plan - Discharge Summary New Discharge Prescriptions: New Acetaminophen Tab [Tylenol] 650 mg PO Q6HR PRN tab PRN Reason: Mild Pain Or Fever > 100.5 Continue Mesalamine [Lialda] 3.6 gm PO DAILY Citalopram Hydrobromide [CeleXA] 20 mg PO HS atenoloL [Tenormin] 25 mg PO DAILY metFORMIN HCL 1,000 mg PO BID Insulin Degludec [Tresiba Flextouch U-100 Pen] 18 units SQ DAILY Semaglutide [Ozempic] 2 mg SQ SEGURA Losartan Potassium 100 mg PO DAILY Atorvastatin [Lipitor] 10 mg PO HS Insulin Degludec [Tresiba Flextouch U-100 Pen] 16 units SQ HS Discharge Medication List Mesalamine [Lialda] 3.6 gm PO DAILY 08/26/16 [History] Atorvastatin [Lipitor] 10 mg PO HS 10/06/21 [History] Citalopram Hydrobromide [CeleXA] 20 mg PO HS 10/06/21 [History] Losartan Potassium 100 mg PO DAILY 10/06/21 [History] atenoloL [Tenormin] 25 mg PO DAILY 10/06/21 [History] metFORMIN HCL 1,000 mg PO BID 11/24/21 [History] Insulin Degludec [Tresiba Flextouch U-100 Pen] 16 units SQ HS 11/27/23 [History] Insulin Degludec [Tresiba Flextouch U-100 Pen] 18 units SQ DAILY 11/27/23 [History] Semaglutide [Ozempic] 2 mg SQ SEGURA 11/27/23 [History] Acetaminophen Tab [Tylenol] 650 mg PO Q6HR PRN tab 11/28/23 [Rx] Follow up Appointment(s)/Referral(s): Ajay Hope DO [Primary Care Provider] - 1-2 days Discharge Disposition: HOME SELF-CARE
[2023-11-28 15:15] VITALS: BP 126/78; PULSE 89; TEMP 98.7
== END 2023-11-28 15:28 | disposition home or self-care (01) ==
LOC: EC 13:07 → 6NMEDSUR 15:05
PROVIDERS: ADMIT Internal Medicine; ATTEND Internal Medicine
DX: R07.89 Other chest pain (principal); R06.02 Shortness of breath; F17.290 Nicotine dependence, other tobacco product, uncomplicated; E11.9 Type 2 diabetes mellitus without complications; I10 Essential (primary) hypertension; K51.90 Ulcerative colitis, unspecified, without complications; E78.5 Hyperlipidemia, unspecified; Z11.52 Encounter for screening for COVID-19; Z82.49 Family history of ischemic heart disease and other diseases of the circulatory system; Z79.899 Other long term (current) drug therapy; Z79.84 Long term (current) use of oral hypoglycemic drugs; Z79.4 Long term (current) use of insulin; Z79.82 Long term (current) use of aspirin
CPT/HCPCS: 99285; 36415; 93005; 93306; 93351; 85379; 80061; 80053; 83735; 84484; 85025; 85610; 85730; 83036; 87636; 71046; G0378 ×2